=== PATIENT | female | born 1965 | race Caucasian/White ===

== ENCOUNTER 2020-01-28 13:08 | Emergency (ER) | payer SELFPAY ==
[~2020-01-28] VITALS: Ht 167.6 cm; Wt 59.0 kg
--- NOTE | 2020-01-28 13:15 | NUR ---
pt's daughter demanding immediate room, blanket, pillow. updated pt will receive the next bed.
[2020-01-28] MEDS ORDERED: SODIUM CHLORIDE 0.9% 1000ML 1,000 ML IV STA ×2 (13:34)
[2020-01-28] MEDS ORDERED: MORPHINE SULFATE INJ 4 MG/ML INJ 1ML IV STA (13:34)
[2020-01-28] MEDS ORDERED: FAMOTIDINE 20 MG/2 ML VIAL IV ONE ×2 (13:45→14:05)
[2020-01-28] MEDS ORDERED: ONDANSETRON HCL INJ 2MG/ML 2ML 2 MG/ML VIAL IV ONE (13:45)
[2020-01-28] MEDS ORDERED: PROMETHAZINE 25MG/ NS 50ML (IV) IV ONE (14:00)
--- NOTE | 2020-01-28 14:00 | NUR ---
Pt states she drinks multiple glasses of wine everyday.
[2020-01-28] MEDS ORDERED: MORPHINE SULFATE INJ 4 MG/ML INJ 1ML ONE (14:05)
[2020-01-28] MEDS ORDERED: PROMETHAZINE HCL (IM) 25 MG/ML VIAL IM ONE (14:05)
[2020-01-28] MEDS ORDERED: SODIUM CHLORIDE 0.9% 1000ML 2,000 ML ONE (14:05)
[2020-01-28] MEDS ORDERED: IOPAMIDOL 370 MG/ML 200 ML INFUS..BTL INJ ONE (14:11)
[2020-01-28] MEDS ORDERED: SODIUM CHLORIDE 0.9% 50ML 0 ML ONE (14:11)
--- OUTSIDE RECORDS SUMMARY | 2020-01-28 14:30 | XMS REPORT | Continuity of Care Document ---
Author Author [facility] Address [address] [place] [address] Phone Unavailable Care Team Providers Care Communications Department Chair Name Role Phone Unavailable Unavailable Payers Payer Name Policy Type Policy Number Effective Date Expiration Date S ource Problems This patient has no known problems. Allergies, Adverse Reactions, Alerts Allergy Name Allergy Type Status Severity Reaction(s) Onset Date Inacti ve Date Treating Clinician Comments Source No Known Allergies DA Active U 2018-02-23 00:00:00 [facility] Medications This patient has no known medications. Procedures This patient has no known procedures. Results This patient has no known results.
--- NOTE | 2020-01-28 15:18 | Diagnostic Imaging Report ---
EXAM: CT Abdomen and Pelvis WITHOUT intravenous contrast INDICATION: ^colitis. COMPARISON: None. TECHNIQUE: Abdomen and pelvis were scanned utilizing a multidetector helical scanner from the lung base to the pubic symphysis without administration of IV contrast. Coronal and sagittal reformations were obtained. Routine technique was performed. IV CONTRAST: None ORAL CONTRAST: None COMPLICATIONS: None RADIATION DOSE: Total DLP: 598 mGy*cm Dose modulation, iterative reconstruction, and/or weight based adjustment of the mA/kV was utilized to reduce the radiation dose to as low as reasonably achievable. FINDINGS: Evaluation is limited due to lack of IV and oral contrast. LOWER THORAX: Dependent subsegmental atelectasis is noted. Small hiatal hernia is noted. Partially visualized saline breast implants are noted. HEPATOBILIARY: Liver is diffusely hypoattenuating. Focal fatty infiltration is identified along the falciform ligament. There are a few lobular hypodense lesions for example in segment IVb and segment 8, indeterminate by this single phase noncontrast evaluation. No biliary ductal dilatation. The gallbladder is not distended. There is questionable sludge. SPLEEN: No splenomegaly. PANCREAS: No focal masses or ductal dilatation. ADRENALS: No adrenal nodules. KIDNEYS/URETERS: Negative for hydronephrosis or renal calculus. Ureters are not dilated. No surrounding inflammatory changes are noted. PELVIC ORGANS/BLADDER: Unremarkable. PERITONEUM / RETROPERITONEUM: No free air or fluid. LYMPH NODES: No lymphadenopathy. VESSELS: Unremarkable. GI TRACT: Limited evaluation due to lack of IV and oral contrast. Bowel loops are not dilated. Small hiatal hernia is noted. Normal appendix is noted. Numerous diverticula are identified of the sigmoid colon without surrounding inflammatory changes. BONES AND SOFT TISSUES: No acute osseous abnormality. Mild multilevel degenerative changes of the spine are noted. No destructive lesion is identified. Soft tissues are unremarkable. IMPRESSION: Limited evaluation due to lack of IV and oral contrast. 1. Hepatic steatosis. Indeterminate hypodense lesions within segments 4B and 8. 2. Uncomplicated colonic diverticulosis. 3. Questionable gallbladder sludge. Signed by: Tico Argueta MD on 01/28/2020 3:15 PM
[2020-01-28] MEDS ORDERED: METOCLOPRAMIDE HCL 10 MG/2ML VIAL IV ONE (15:45)
[2020-01-28] MEDS ORDERED: METOCLOPRAMIDE HCL 10 MG/2ML VIAL ONE (15:50)
[2020-01-28] MEDS ORDERED: OMEPRAZOLE20 M1 PO (16:27)
[2020-01-28] MEDS ORDERED: TYLENOL # 31 EA PO (16:27)
[2020-01-28] MEDS ORDERED: PROMETHAZINE HC25 M1 PO (16:27)
[2020-01-28] MEDS ORDERED: PROMETHAZI6.25 MG/5 PO (16:27)
--- NOTE | 2020-01-28 16:28 | Emergency Department Note ---
History of Present Illnes History of Present Illness Chief Complaint: COVID PUI History of Present Illness This is a 54 year old female c/o diffused abdominal pain for 1 day, n/v/d. She has similar illnesses few years back but not this bad, no cause found. She had an normal colonoscopy 5 years ago . Arrival Mode: Car Onset (how long ago): day(s) (1) Severity: moderate Onset quality: gradual Duration (how long): hour(s) Timing of current episode: intermittent Progression: worsening Relieving factors: none Exacerbating factors: none Associated symptoms: Reports loss of appetite, Reports malaise, Reports nausea/vomiting Treatments prior to arrival: none Past Medical/Family History Physician Review I have reviewed the patient's past medical and family history. Any updates have been documented here. Past Medical History Other Medical History: c-diff Other Surgery: arm surgery, hand, knee, foot, btl Social History Smoking Cessation: Unknown if ever smoked Alcohol Use: Occasional Any Illegal Drug Use: No TB Exposure/Symptoms: No Physically hurt or threatened: No Family History Family history of heart diseas: No Other Any Pre-Existing Lines (PICC,: No Is patient up to date on immun: No Review of Systems Review of Systems Constitutional: Reports no symptoms EENTM: Reports no symptoms Cardiovascular: Reports no symptoms Respiratory: Reports no symptoms Gastrointestinal: Reports as per HPI, Reports abdominal pain, Reports diarrhea, Reports nausea, Reports vomiting Genitourinary: Reports no symptoms Musculoskeletal: Reports no symptoms Integumentary: Reports no symptoms Neurological: Reports no symptoms Psychological: Reports no symptoms Endocrine: Reports no symptoms Hematological/Lymphatic: Reports no symptoms Physical Exam Related Data Allergies: Coded Allergies: No Known Allergies (Unverified , 12/01/10) Vital signs reviewed: Yes Physical Exam CONSTITUTIONAL Constitutional: Present well-developed, Present well-nourished HENT HENT: Present mucosae dry HENT L/R: Present left ext ear normal, Present right ext ear normal EYES Eyes: Reports PERRL, Reports conjunctivae normal NECK Neck: Present ROM normal PULMONARY Pulmonary: Present effort normal, Present breath sounds normal CARDIOVASCULAR Cardiovascular: Present regular rhythm, Present heart sounds normal, Present capillary refill normal, Present normal rate GASTROINTESTINAL Abdominal: Present soft, Present tender GENITOURINARY Genitourinary: Present exam deferred SKIN Skin: Present dry MUSCULOSKELETAL Musculoskeletal: Present ROM normal NEUROLOGICAL Neurological: Present alert, Present oriented x 3, Present no gross motor or sensory deficits PSYCHOLOGICAL Psychological: Present mood/affect normal, Present judgement normal Results Laboratory Lab results reviewed: Yes Imaging Imaging results reviewed: Yes Assessment & Plan Medical Decision Making MDM colitis, dehydration Reassessment Reassessment time: 15:57 Reassessment doing better, offer admission but pt declines Assessment & Plan Final Impression: (1) Dehydration (2) Nausea & vomiting (3) Diarrhea Depart Disposition: HOME, SELF-skilled nursing Meds Active Scripts Omeprazole (OMEPRAZOLE) 20 Mg Tablet.dr, 20 TAB PO BID, #30 Prov:KIMBERLEE MCCABE MD 01/28/20 Acetaminophen/Codeine* (TYLENOL # 3*) 1 Ea Tab, 1 TAB PO Q4HR PRN for pain or cough, #30 Prov:KIMBERLEE MCCABE MD 01/28/20 Promethazine Hcl (PROMETHAZINE HCL) 25 Mg Tablet, 25 MG PO DAILY, #30 TAB Prov:KIMBERLEE MCCABE MD 01/28/20 Promethazine Hcl (PROMETHAZINE HCL) 6.25 Mg/5 Ml Syrup, 10 ML PO Q6H, #120 ML Prov:KIMBERLEE MCCABE MD 01/28/20 Medications in the ED Morphine Sulfate 4 mg ONCE STAT IV ; Start 01/28/20 at 13:34; Stop 01/28/20 at 13:35; Status UNV Ondansetron HCl 8 mg ONCE ONCE IV ; Start 01/28/20 at 13:45; Stop 01/28/20 at 1 3:46; Status UNV Famotidine 20 mg ONCE ONCE IV ; Start 01/28/20 at 13:45; Stop 01/28/20 at 13:46; Status UNV Sodium Chloride 1,000 ml @ 0 mls/hr Q0M STAT IV ; Start 01/28/20 at 13:34; Stop 01/28/20 at 13:36; Status DC Sodium Chloride 1,000 ml @ 0 mls/hr Q0M STAT IV ; Start 01/28/20 at 13:34; Stop 01/28/20 at 13:35; Status UNV Physician Attestation Provider Attestation TALENT DEVELOPMENT DIRECTOR: web search no record found KIMBERLEE MCCABE MD Jan 28, 2020 13:41
--- NOTE | 2020-01-28 16:50 | NUR ---
after getting pt a wheelchair, offering her socks, pt given dc paperwork and explained each prescription, pt went to utility appraiser to check out and weights and measures sealer came to back desk and stated pt is asking why she did not receive any prescriptions. pt is stating she needs medications for home for pain and nausea, explained to weights and measures sealer that 4 prescriptions and her work noted were the top sheets on her stapled paperwork i just went over with her in detail less than 5 mins ago. pt now states she remembers.....
== END 2020-01-28 17:00 | disposition home or self-care (01) ==
LOC: FSED 13:35
DX: R11.2 Nausea with vomiting, unspecified (principal); R19.7 Diarrhea, unspecified; E86.0 Dehydration; F17.210 Nicotine dependence, cigarettes, uncomplicated
CPT/HCPCS: 74176; 80048; 80076; 85025; 99284; J2270; J2550; J2765; J7030; Q9967